=== PATIENT | female | born 1970 | race American Indian/Alaskan Native ===

== ENCOUNTER 2018-08-23 22:32 | Emergency (ER) | payer BC ==
[2018-08-23 22:51] VITALS: O2SAT 100
--- NOTE | 2018-08-23 23:30 | ED PDOC ---
HPI: Female Pain Time Seen by Provider: 08/23/18 22:54 Chief Complaint (Nursing): Female Genitourinary Chief Complaint (Provider): vaginal bleeding History Per: Patient History/Exam Limitations: no limitations Onset/Duration Of Symptoms: Days (1month) Current Symptoms Are (Timing): Still Present Additional Complaint(s): 48 y/o female presents for evaluation of vaginal bleeding x 1 month. Patient states bleeding was light spotting for 2 weeks, then became heavier, and as of 3 days ago started passing large clots. Patient states bleeding then improved, but tonight became heavy again, prompting ED visit. Denies fever, headache, dizziness, chest pain, shortness of breath, palpitations, abdominal/pelvic pain, urinary symptoms. Past Medical History Reviewed: Historical Data, Nursing Documentation, Vital Signs Vital Signs: Last Vital Signs Temp 98.3 F 08/23/18 22:47 Pulse 92 H 08/23/18 22:47 Resp 16 08/23/18 22:47 BP 147/91 H 08/23/18 22:47 Pulse Ox 100 08/23/18 22:47 - Medical History PMH: No Chronic Diseases - Surgical History Surgical History: No Surg Hx - Family History Family History: States: No Known Family Hx - Allergies Allergies/Adverse Reactions: Allergies Allergy/AdvReac Type Severity Reaction Status Date / Time No Known Allergies Allergy Verified 08/23/18 23:23 Review of Systems ROS Statement: Except As Marked, All Systems Reviewed And Found Negative Genitourinary Female: Positive for: Vaginal Bleeding Physical Exam - Reviewed Nursing Documentation Reviewed: Yes Vital Signs Reviewed: Yes - Physical Exam Appears: Positive for: Well, Non-toxic, No Acute Distress Head Exam: Positive for: ATRAUMATIC, NORMAL INSPECTION, NORMOCEPHALIC Skin: Positive for: Normal Color Eye Exam: Positive for: Normal appearance ENT: Positive for: Normal ENT Inspection Cardiovascular/Chest: Positive for: Regular Rate, Rhythm Respiratory: Positive for: Normal Breath Sounds Gastrointestinal/Abdominal: Positive for: Normal Exam Pelvic Exam: Positive for: External Exam Normal, No Cerv. 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 Negative for: Tender Adnexa, Tender Uterus Back: Positive for: Normal Inspection Extremity: Positive for: Normal ROM Neurologic/Psych: Positive for: Alert, Oriented (x3) - Laboratory Results Result Diagrams: 11/07/18 23:48 08/23/18 23:48 - ECG O2 Sat by Pulse Oximetry: 100 - Progress ED Course And Treament: -cbc -cmp -urinalysis -IV fluids -TV u/s Ultrasound of the pelvis, transvaginal. Indication: Heavy vaginal bleeding. Technique: Transabdominal ultrasound images were obtained. Findings: Uterus measures 10.9x5.6x6 cm. Anteverted uterus. Diffusely thickened, heterogeneous endometrium measuring 15 mm. Posterior intramural uterine fibroid measuring 2.9 cm. Nonvisualization of the right ovary. The left ovary measures 4x3.7x3.2 cm. There is a septated left ovarian cyst measuring 3.4 cm. Impression: Septated left ovarian cyst. Heterogeneously thickened endometrium. Patient resting comfortably on re-eval, states bleeding improved and she would like to be discharged Patient educated on findings, discharged with instructions to follow up [employer] within 2-3 days Advised iron supplement Return precautions given Disposition - Clinical Impression Clinical Impression: Vaginal bleeding, Anemia, Left ovarian cyst - Patient ED Disposition Is Patient to be Admitted: No Counseled Patient/Family Regarding: Studies Performed, Diagnosis, Need For Followup - Disposition Disposition: Routine/Home Disposition Time: 03:08 Condition: IMPROVED Instructions: Heavy Periods, Ovarian Cysts
[2018-08-23] MEDS ORDERED: Sodium Chloride 0.9% 1,000 ML IV STA (23:31)
[2018-08-24 00:11] LABS: BASO # 0.1 K/uL (0.0-0.2); BASO % 1.4 % (0.0-2.0); EOS # 0.5 K/uL (0.0-0.7); EOS % 4.2 % (0.0-4.0); HEMOGLOBIN 9.2 g/dL (12.0-16.0); LYMPH # 3.5 K/uL (1.0-4.3); LYMPH % 31.7 % (20.0-40.0); MEAN CELL VOLUME 68.7 fl (81.0-99.0); MEAN CORPUSCULAR HEMOGLOBIN 21.3 pg (27.0-31.0); MEAN PLATELET VOLUME 9.5 fl (7.2-11.7); MONO # 0.8 K/uL (0.0-0.8); MONO % 7.7 % (0.0-10.0); NRBC % 0.1 % (0.0-0.0); RBC 4.34 Mil/uL (3.80-5.20); RED CELL DISTRIBUTION WIDTH 21.9 % (11.5-14.5); WHITE BLOOD COUNT 10.9 K/uL (4.8-10.8)
[2018-08-24 00:22] LABS: ALB/GLOB RATIO 1.2 (1.0-2.1); ALBUMIN 4.7 g/dL (3.5-5.0); BLOOD UREA NITROGEN 17 mg/dl (7-17); CALCIUM 9.1 mg/dL (8.4-10.2); GFR NON-AFRICAN AMERICAN > 60
[2018-08-24 00:25] LABS: SQUAMOUS EPITHIAL 5 /hpf (0-5); URINE BILIRUBIN NEGATIVE (NEGATIVE); URINE BLOOD LARGE (NEGATIVE); URINE CLARITY CLOUDY (Clear); URINE COLOR YELLOW (YELLOW); URINE GLUCOSE (UA) NEG (Normal); URINE LEUKOCYTE ESTERASE NEG Leu/uL (Negative); URINE PROTEIN 100 mg/dL (NEGATIVE)
[2018-08-24 00:30] LABS: ALT/SGPT 18 U/L (9-52); AST/SGOT 43 U/L (14-36)
[2018-08-24 04:36] VITALS: BP 128/87; PULSE 86; RESP 18; TEMP 98
--- NOTE | 2018-08-24 11:10 | US ---
Date of service: 08/24/2018 HISTORY: heavy vaginal bleeding COMPARISON: None available. TECHNIQUE: Transabdominal and transvaginal FINDINGS: UTERUS: Measures 10.9 x 5.6 x 6.0 cm. Posterior intramural uterine fibroid, 2.9 x 1.9 x 2.4 cm. No other uterine mass identified. ENDOMETRIUM: Measures 15 mm in diameter. Heterogeneous echogenicity. No endometrial fluid appreciated. CERVIX: No cervical abnormality identified. RIGHT OVARY: Not visualized LEFT OVARY: Measures 4.0 x 3.7 x 3.2 cm. No solid mass. Normal flow. Complex cyst with minimal internal septation, 4.0 x 3.7 x 3.2 cm. Followup with transvaginal pelvic ultrasound examination is advised in 6-8 weeks. FREE FLUID: No significant free fluid noted. OTHER FINDINGS: None. IMPRESSION: Mildly complex 4 cm left ovarian cyst. Follow-up with transvaginal pelvic ultrasound examination in 6-8 weeks. Mildly heterogeneous 15 mm endometrium. 2.9 cm posterior intramural uterine fibroid. The preliminary findings for this examination were reported by [facility] at 2:21 a.m. on 08/24/2018. There is concurrence of this report with the preliminary findings.
== END 2018-08-24 04:05 | disposition home or self-care (01) ==
LOC: H.ER 22:32
DX: N83.202 Unspecified ovarian cyst, left side (principal); N93.9 Abnormal uterine and vaginal bleeding, unspecified; D64.9 Anemia, unspecified; D25.1 Intramural leiomyoma of uterus
CPT/HCPCS: 76830; 80053; 81003; 85025; 86850; 86900; 87086; 99284; J7030